=== PATIENT | female | born 1985 | race Caucasian/White ===

== ENCOUNTER → 2016-07-18 | Outpatient (REF) | payer OTHER ==
[~2016-07-18] MED LIST: ACET50TA PO; IBUP80TA PO; PRIL20CA PO; SYMB80AE IN
== END ==
LOC: M LAB REF 11:59
PROVIDERS: ATTEND Physician Assistant Medical
DX: J11.1 Influenza due to unidentified influenza virus with other respiratory manifestations (principal)

== ENCOUNTER → 2016-09-01 | Outpatient (REF) | payer OTHER | LOC: M SFHCCLAY 16:18 | PROVIDERS: ATTEND Nurse Practitioner | DX: A09 Infectious gastroenteritis and colitis, unspecified (principal) ==

== ENCOUNTER → 2017-05-23 | Outpatient (CLI) | payer OTHER ==
[2017-05-23 23:22] LABS: INFLUENZA A AMPLIFICATION NEGATIVE (NEGATIVE); INFLUENZA B AMPLIFICATION NEGATIVE (NEGATIVE); RSV AMPLIFICATION NEGATIVE (NEGATIVE)
== END ==
LOC: M RAD 19:12
DX: J45.909 Unspecified asthma, uncomplicated (principal)
CPT/HCPCS: 71046

== ENCOUNTER → 2017-08-04 | Outpatient (CLI) | payer OTHER | LOC: M CLY 10:20 | DX: M25.521 Pain in right elbow (principal); M25.531 Pain in right wrist | CPT/HCPCS: 73080 ==

== ENCOUNTER → 2017-10-25 | Outpatient (REF) | payer OTHER ==
[2017-10-26 11:25] LABS: BASO % 0.3 % (0.0-1.0); EOS # 0.4 10^3/uL (0.0-0.50); EOS % 6.3 % (0.0-3.0); HEMATOCRIT 39.8 % (36.0-47.0); HEMOGLOBIN 13.2 g/dl (12.0-15.5); IMMATURE GRANULOCYTE % 0.2 % (0-3.0); LYMPH # 1.9 10^3/uL (1.5-4.5); LYMPH % 29.8 % (24.0-44.0); MEAN CORPUSCULAR HEMOGLOBIN 29.6 pg (27.0-33.0); MEAN CORPUSCULAR HGB CONC 33.2 g/dl (32.0-36.5); MEAN CORPUSCULAR VOLUME 89.2 fl (80.0-96.0); MONO # 0.4 10^3/uL (0.0-0.8); MONO % 6.6 % (0.0-5.0); NEUTROPHILS # 3.7 10^3/uL (1.8-7.7); NEUTROPHILS % 56.8 % (36.0-66.0); PLATELET COUNT, AUTOMATED 294 10^3/uL (150-450); RED BLOOD COUNT 4.46 10^6/uL (4.00-5.40); RED CELL DISTRIBUTION WIDTH 11.9 % (11.5-14.5); WHITE BLOOD COUNT 6.5 10^3/uL (4.0-10.0)
[2017-10-26 11:56] LABS: IRON (FE) 45 UG/DL (50-170)
[2017-10-26 11:56] LABS: FREE T4 1.07 NG/DL (0.76-1.46)
== END ==
LOC: M SFHCCLAY 15:35
DX: R53.83 Other fatigue (principal); M25.521 Pain in right elbow; M25.561 Pain in right knee
CPT/HCPCS: 83540

== ENCOUNTER → 2017-11-18 | Outpatient (REF) | payer OTHER ==
[2017-11-18 13:45] LABS: C REACTIVE PROTEIN QUANTITATIV 1.64 MG/DL (0.00-0.30)
[2017-11-19 15:15] LABS: PROCALCITONIN <0.05 NG/ML (<0.10)
[2017-11-20 00:06] LABS: ANA (HEP2) Positive (.); Lyme Disease IgG/IgM Antibodie <0.91 ISR (0.00-0.90); Lyme Disease IgM Ab Quantitati <0.80 index (0.00-0.79); RNP ANTIBODY < 0.2 AI (0.0-0.9); SMITHS ANTIBODY 0.2 AI (0.0-0.9); SSA SJOGRENS A <0.2 AI (0.0-0.9); SSB SJOGRENS B <0.2 AI (0.0-0.9)
[2017-11-27 00:07] LABS: CYCLIC CITRULLINATED PEPTIDE 8 units (0-19)
== END ==
LOC: M SFHCLERA 09:23
DX: M17.11 Unilateral primary osteoarthritis, right knee (principal)

== ENCOUNTER → 2017-11-22 | Outpatient (CLI) | payer OTHER | LOC: M RAD 09:52 | DX: M17.11 Unilateral primary osteoarthritis, right knee (principal); M25.461 Effusion, right knee; M71.21 Synovial cyst of popliteal space [Baker], right knee | CPT/HCPCS: 73721 ==

== ENCOUNTER → 2017-11-23 | Outpatient (CLI) | payer OTHER ==
[2017-11-23 14:12] LABS: CPK CREATINE PHOSPHOKINASE 149 U/L (26-192); TOTAL PROTEIN 7.3 GM/DL (6.4-8.2)
[2017-11-23 14:12] LABS: LDH LACTATE DEHYDROGENASE 161 U/L (84-246)
[2017-11-23 14:28] LABS: ERYTHROCYTE SEDIMENTATION RATE 8 mm/hr (0-20)
[2017-11-23 16:18] LABS: CHLAMYDIA DNA AMPLIFICATION NEGATIVE (NEGATIVE); GC DNA AMPLIFICATION NEGATIVE (NEGATIVE)
[2017-11-25 11:47] LABS: ALBUMIN 3.97 GM/DL (3.29-5.55); ALBUMIN % 54.4 % (55.8-66.1); ALPHA-1-GLOBULIN % 5.3 % (2.9-4.9); ALPHA-1-GLOBULINS 0.39 GM/DL (0.17-0.41); ALPHA-2-GLOBULINS 0.85 GM/DL (0.42-0.99); ALPHA-2-GLOBULINS % 11.7 % (7.1-11.8); BETA-2-GLOBULINS % 4.9 % (3.2-6.5); GAMMA GLOBULIN % 17.7 % (11.1-18.8)
[2017-11-25 11:48] LABS: BETA-1-GLOBULINS 0.44 GM/DL (0.28-0.60); BETA-2-GLOBULINS 0.36 GM/DL (0.19-0.55); GAMMA GLOBULINS 1.29 GM/DL (0.65-1.58)
[2017-12-01 14:26] LABS: ALDOLASE 5.2 U/L (3.3-10.3); ANTI JO-1 ANTIBODIES <0.2 AI (0.0-0.9); HLA-B27 Negative (.)
== END ==
LOC: M LAB 13:02
DX: M17.11 Unilateral primary osteoarthritis, right knee (principal)
CPT/HCPCS: 72114

== ENCOUNTER → 2017-11-25 | Outpatient (CLI) | payer OTHER ==
[~2017-11-25] MED LIST changes: -ACET50TA PO; -IBUP80TA PO; +LIDOCAINE 1% MDV 20ML VIAL As Ordered; -PRIL20CA PO; -SYMB80AE IN
== END ==
LOC: M RADPRO 10:43
DX: R60.0 Localized edema (principal)
CPT/HCPCS: 10022

== ENCOUNTER → 2017-12-20 | Outpatient (REF) | payer OTHER ==
[2017-12-20 16:39] LABS: BASO % 0.4 % (0.0-1.0); EOS # 0.6 10^3/uL (0.0-0.50); EOS % 6.6 % (0.0-3.0); HEMATOCRIT 45.2 % (36.0-47.0); HEMOGLOBIN 14.7 g/dl (12.0-15.5); IMMATURE GRANULOCYTE % 0.4 % (0-3.0); LYMPH # 2.2 10^3/uL (1.5-4.5); LYMPH % 25.7 % (24.0-44.0); MEAN CORPUSCULAR HEMOGLOBIN 29.6 pg (27.0-33.0); MEAN CORPUSCULAR HGB CONC 32.5 g/dl (32.0-36.5); MEAN CORPUSCULAR VOLUME 90.9 fl (80.0-96.0); MONO # 0.3 10^3/uL (0.0-0.8); MONO % 3.8 % (0.0-5.0); NEUTROPHILS # 5.3 10^3/uL (1.8-7.7); NEUTROPHILS % 63.1 % (36.0-66.0); PLATELET COUNT, AUTOMATED 330 10^3/uL (150-450); RED BLOOD COUNT 4.97 10^6/uL (4.00-5.40); RED CELL DISTRIBUTION WIDTH 11.8 % (11.5-14.5); WHITE BLOOD COUNT 8.4 10^3/uL (4.0-10.0)
[2017-12-20 17:32] LABS: ERYTHROCYTE SEDIMENTATION RATE 6 mm/hr (0-20)
[2017-12-20 22:13] LABS: ALBUMIN 3.5 GM/DL (3.2-5.2); ALKALINE PHOSPHATASE 81 U/L (45-117); ALT/SGPT 14 U/L (12-78); ANION GAP 7 MEQ/L (8-16); AST/SGOT 13 U/L (7-37); BILIRUBIN,TOTAL 0.9 MG/DL (0.2-1.0); BLOOD UREA NITROGEN 10 MG/DL (7-18); CALCIUM LEVEL 9.4 MG/DL (8.5-10.1); CARBON DIOXIDE LEVEL 28 MEQ/L (21-32); CHLORIDE LEVEL 104 MEQ/L (98-107); CREATININE FOR GFR 0.77 MG/DL (0.55-1.30); GLOMERULAR FILTRATION RATE > 60.0 (>60); GLUCOSE, FASTING 90 MG/DL (70-100); POTASSIUM SERUM 4.2 MEQ/L (3.5-5.1); SODIUM LEVEL 139 MEQ/L (136-145); TOTAL PROTEIN 7.4 GM/DL (6.4-8.2)
== END ==
LOC: M SFHCCLAY 11:37
DX: M35.9 Systemic involvement of connective tissue, unspecified (principal)

== ENCOUNTER → 2018-02-11 | Outpatient (REF) | payer OTHER ==
[2018-02-11 16:38] LABS: HCG, SERUM QUANTITATIVE < 1.0 MIU/ML
== END ==
LOC: M LABDRAWC 16:09
DX: O20.0 Threatened abortion (principal)
CPT/HCPCS: 84702

== ENCOUNTER → 2018-02-17 | Outpatient (REF) | payer OTHER ==
[2018-02-19 15:23] LABS: HPV HYBRID CAPTURE II Negative (Negative)
== END ==
LOC: M LAB REF 17:56
DX: Z12.4 Encounter for screening for malignant neoplasm of cervix (principal)

== ENCOUNTER → 2018-05-23 | Outpatient (REF) | payer OTHER ==
[~2018-05-23] MED LIST changes: +ACET50TA PO; +IBUP80TA PO; -LIDOCAINE 1% MDV 20ML VIAL As Ordered; +PRIL20CA PO; +SYMB80AE IN
[2018-05-23 12:24] LABS: BASO % 0.4 % (0.0-1.0); EOS # 0.6 10^3/uL (0.0-0.50); EOS % 7.8 % (0.0-3.0); HEMATOCRIT 46.6 % (36.0-47.0); HEMOGLOBIN 14.7 g/dl (12.0-15.5); LYMPH # 2.2 10^3/uL (1.5-4.5); LYMPH % 28.7 % (24.0-44.0); MEAN CORPUSCULAR HEMOGLOBIN 29.7 pg (27.0-33.0); MEAN CORPUSCULAR HGB CONC 31.5 g/dl (32.0-36.5); MEAN CORPUSCULAR VOLUME 94.1 fl (80.0-96.0); MONO # 0.6 10^3/uL (0.0-0.8); MONO % 7.2 % (0.0-5.0); NEUTROPHILS # 4.3 10^3/uL (1.8-7.7); NEUTROPHILS % 55.8 % (36.0-66.0); PLATELET COUNT, AUTOMATED 304 10^3/uL (150-450); RED BLOOD COUNT 4.95 10^6/uL (4.00-5.40); WHITE BLOOD COUNT 7.7 10^3/uL (4.0-10.0)
== END ==
LOC: M SFHCPLAZ 09:11
PROVIDERS: ATTEND Internal Medicine Rheumatology
DX: M35.9 Systemic involvement of connective tissue, unspecified (principal)

== ENCOUNTER → 2018-05-26 | Outpatient (REF) | payer OTHER ==
[2018-05-26 13:00] LABS: FREE T4 0.94 NG/DL (0.76-1.46); THYROID STIMULATING HORMONE 1.36 uIU/ML (0.358-3.740)
== END ==
LOC: M SFHCCLAY 09:29
PROVIDERS: ATTEND Nurse Practitioner Family
DX: R63.5 Abnormal weight gain (principal)

== ENCOUNTER → 2018-08-18 | Outpatient (REF) | payer OTHER ==
[~2018-08-18] MED LIST changes: -ACET50TA PO; +MAPA500T17 PO
== END ==
LOC: M SFHCPLAZ 09:17
PROVIDERS: ATTEND Internal Medicine Rheumatology
DX: M35.9 Systemic involvement of connective tissue, unspecified (principal)

== ENCOUNTER → 2018-11-30 | Outpatient (REF) | payer OTHER ==
[2018-11-30 12:12] LABS: BASO % 0.3 % (0.0-1.0); EOS # 0.6 10^3/uL (0.0-0.50); HEMATOCRIT 44.3 % (36.0-47.0); HEMOGLOBIN 14.4 g/dl (12.0-15.5); LYMPH # 2.1 10^3/uL (1.5-4.5); LYMPH % 31.6 % (24.0-44.0); MEAN CORPUSCULAR HEMOGLOBIN 30.8 pg (27.0-33.0); MEAN CORPUSCULAR HGB CONC 32.5 g/dl (32.0-36.5); MEAN CORPUSCULAR VOLUME 94.7 fl (80.0-96.0); MONO # 0.4 10^3/uL (0.0-0.8); MONO % 6.4 % (0.0-5.0); NEUTROPHILS # 3.5 10^3/uL (1.8-7.7); NEUTROPHILS % 52.4 % (36.0-66.0); PLATELET COUNT, AUTOMATED 273 10^3/uL (150-450); RED BLOOD COUNT 4.68 10^6/uL (4.00-5.40); WHITE BLOOD COUNT 6.8 10^3/uL (4.0-10.0)
[2018-11-30 12:29] LABS: ALBUMIN 3.7 GM/DL (3.2-5.2); ALT/SGPT 16 U/L (12-78); BILIRUBIN,TOTAL 0.8 MG/DL (0.2-1.0); BLOOD UREA NITROGEN 9 MG/DL (7-18); CALCIUM LEVEL 8.9 MG/DL (8.5-10.1); CARBON DIOXIDE LEVEL 30 MEQ/L (21-32); CHLORIDE LEVEL 104 MEQ/L (98-107); CREATININE FOR GFR 0.66 MG/DL (0.55-1.30); FREE T4 0.92 NG/DL (0.76-1.46); GLOMERULAR FILTRATION RATE > 60.0 (>60); GLUCOSE, FASTING 81 MG/DL (70-100); IRON (FE) 110 UG/DL (50-170); SODIUM LEVEL 139 MEQ/L (136-145); TOTAL PROTEIN 6.7 GM/DL (6.4-8.2)
== END ==
LOC: M SFHCCLAY 08:42
PROVIDERS: ATTEND Nurse Practitioner Family
DX: F34.1 Dysthymic disorder (principal); M35.9 Systemic involvement of connective tissue, unspecified; R63.5 Abnormal weight gain; M79.7 Fibromyalgia

== ENCOUNTER 2019-01-31 14:56 | Emergency (ER) | payer OTHER, SELFPAY ==
[~2019-01-31] VITALS: Ht 154.9 cm; Wt 85.0 kg
[2019-01-31] MEDS ORDERED: BREO1INH (15:05)
[2019-01-31] MEDS ORDERED: VENTAER (15:05)
[2019-01-31 16:20] LABS: BASO % 0.3 % (0.0-1.0); EOS # 0.7 10^3/uL (0.0-0.5); EOS % 7.1 % (0.0-3.0); HEMATOCRIT 43.3 % (36.0-47.0); HEMOGLOBIN 14.5 g/dl (12.0-15.5); LYMPH # 2.7 10^3/uL (1.5-5.0); LYMPH % 27.5 % (24.0-44.0); MEAN CORPUSCULAR HEMOGLOBIN 30.6 pg (27.0-33.0); MEAN CORPUSCULAR HGB CONC 33.5 g/dl (32.0-36.5); MEAN CORPUSCULAR VOLUME 91.4 fl (80.0-96.0); MONO # 0.5 10^3/uL (0.0-0.8); MONO % 5.2 % (0.0-5.0); NEUTROPHILS # 5.9 10^3/uL (1.5-8.5); NEUTROPHILS % 59.7 % (36.0-66.0); PLATELET COUNT, AUTOMATED 292 10^3/uL (150-450); RED BLOOD COUNT 4.74 10^6/uL (4.00-5.40); WHITE BLOOD COUNT 9.8 10^3/uL (4.0-10.0)
[2019-01-31] MEDS ORDERED: ISOVUE-370 76% 100ML VIAL (Q9967) As Ordered ONE (17:51)
--- NOTE | 2019-01-31 20:11 | REPVR ---
PROCEDURE INFORMATION: Exam: CT Abdomen And Pelvis With Contrast Exam date and time: 01/31/2019 6:33 PM Clinical history: 33 years old, female; Abdominal pain; Localized; Left lower quadrant (llq); Additional info: Llq pain x2 months TECHNIQUE: Imaging protocol: Computed tomography of the abdomen and pelvis with intravenous contrast. Radiation optimization: All CT scans at this facility use at least one of these dose optimization techniques: automated exposure control; mA and/or kV adjustment per patient size (includes targeted exams where dose is matched to clinical indication); or iterative reconstruction. Contrast material: ISOVUE 37; Contrast volume: 100 ml; Contrast route: IV; COMPARISON: US PELVIC NON-OB COMPLETE 01/31/2019 4:47 PM FINDINGS: Liver: There is mild fatty infiltration of the liver. No focal hepatic lesion. Gallbladder and bile ducts: The gallbladder is normal. Pancreas: The pancreas is normal. Spleen: The spleen is normal. Adrenals: The adrenal glands are normal. Kidneys and ureters: The kidneys are normal. No hydronephrosis. Stomach and bowel: No colonic diverticula are seen. There is no bowel wall thickening or distention. Appendix: The appendix is normal. Intraperitoneal space: Unremarkable. No free air. No significant fluid collection. Vasculature: Unremarkable. No abdominal aortic aneurysm. Lymph nodes: Unremarkable. No enlarged lymph nodes. Bladder: The bladder is normal with no evidence of calculi. Reproductive: Within there is an 18 mm right ovarian hypodensity with an enhancing rim probably an involuting cyst. The uterus and left ovary are normal. Bones/joints: Unremarkable. No acute fracture. Soft tissues: Unremarkable. IMPRESSION: 1. 18 mm right ovarian involuting cyst. 2. No acute inflammatory findings. Electronically signed by: Gomez Conn On 01/31/2019 20:11:08 PM
[2019-01-31] MEDS ORDERED: ZOFR8TAB24 PO (20:42)
[2019-01-31 20:47] VITALS: BP 136/87
--- NOTE | 2019-01-31 20:53 | REP ---
PELVIC ULTRASOUND: Real-time sonographic evaluation of the pelvis performed utilizing transabdominal and endovaginal technique. The bladder measures 6.8 x 4.8 x 6.8 cm. Uterus measures 7.0 x 3.7 x 4.3 cm. Endometrial thickness is approximately 3 mm. There is no endometrial fluid collection. The ovaries are normal in size and echotexture, right ovary measuring 3.1 x 2.5 x 3.3 cm and left ovary 3.7 x 1.7 x 1.8 cm. There is no adnexal mass or free fluid. There is no torsion of either ovary with duplex Doppler evaluation. IMPRESSION: Negative pelvic ultrasound. Electronically Signed by Bright Pritchett MD 02/01/2019 02:17 P
== END 2019-01-31 20:49 | disposition home or self-care (01) ==
LOC: M ED 14:56
DX: N83.201 Unspecified ovarian cyst, right side (principal); M79.7 Fibromyalgia; Z87.891 Personal history of nicotine dependence
CPT/HCPCS: 36415; 74177; 76830; 76856; 80047; 81001; 84443; 84702; 85025; 87086; 93976; 99284; Q9967

== ENCOUNTER → 2019-02-14 | Outpatient (REF) | payer OTHER ==
[~2019-02-14] MED LIST changes: +BREO1INH; +VENTAER; +ZOFR8TAB24 PO
[2019-02-14 19:43] LABS: CHLAMYDIA DNA AMPLIFICATION NEGATIVE (NEGATIVE); GC DNA AMPLIFICATION NEGATIVE (NEGATIVE)
== END ==
LOC: M LAB REF 17:19
PROVIDERS: ATTEND Advanced Practice Midwife
DX: R10.2 Pelvic and perineal pain (principal)

== ENCOUNTER → 2019-12-11 | Outpatient (CLI) | payer OTHER ==
[~2019-12-11] MED LIST changes: +PRENTAB29
[2019-12-11 19:05] LABS: BASO % 0.2 % (0.0-1.0); EOS % 3.2 % (0.0-3.0); HEMATOCRIT 42.6 % (36.0-47.0); HEMOGLOBIN 14.2 g/dl (12.0-15.5); LYMPH # 2.3 10^3/uL (1.5-5.0); LYMPH % 21.1 % (24.0-44.0); MEAN CORPUSCULAR HEMOGLOBIN 30.4 pg (27.0-33.0); MEAN CORPUSCULAR HGB CONC 33.3 g/dl (32.0-36.5); MEAN CORPUSCULAR VOLUME 91.2 fl (80.0-96.0); MONO % 5.7 % (0.0-5.0); NEUTROPHILS # 7.6 10^3/uL (1.5-8.5); NEUTROPHILS % 69.4 % (36.0-66.0); PLATELET COUNT, AUTOMATED 308 10^3/uL (150-450); RED BLOOD COUNT 4.67 10^6/uL (4.00-5.40)
[2019-12-11 19:06] LABS: EOS # 0.4 10^3/uL (0.0-0.5); MONO # 0.6 10^3/uL (0.0-0.8)
[2019-12-11 20:23] LABS: HEPATITIS C VIRUS ABY INDEX 0.3 INDEX (<0.8); HIV 1&2 SCREEN CENTAUR NEGATIVE (NEGATIVE)
[2019-12-11 21:15] LABS: CHLAMYDIA DNA AMPLIFICATION NEGATIVE (NEGATIVE); GC DNA AMPLIFICATION NEGATIVE (NEGATIVE)
== END ==
LOC: M PLALAB 14:15
PROVIDERS: ATTEND Advanced Practice Midwife
DX: Z34.81 Encounter for supervision of other normal pregnancy, first trimester (principal); Z3A.00 Weeks of gestation of pregnancy not specified

== ENCOUNTER 2019-12-28 09:32 | Emergency (ER) | payer OTHER ==
[~2019-12-28] VITALS: Ht 154.9 cm; Wt 83.2 kg
[~2019-12-28 09:32] MED LIST changes: -PRENTAB29
[2019-12-28] MEDS ORDERED: PRENTAB29 (09:39)
[2019-12-28 10:25] LABS: APPEARANCE, URINE CLEAR (CLEAR); BACTERIA, URINE AUTO NEGATIVE (NEGATIVE); BILIRUBIN, URINE AUTO NEGATIVE (NEGATIVE); BLOOD, URINE BLOOD NEGATIVE (NEGATIVE); COLOR, URINE YELLOW (YELLOW); GLUCOSE, URINE (UA) AUTO NEGATIVE (NEGATIVE); KETONE, URINE AUTO NEGATIVE (NEGATIVE); LEUKOCYTE ESTERASE, URINE AUTO NEGATIVE (NEGATIVE); MUCUS, URINE SMALL (NEGATIVE); NITRITE, URINE AUTO NEGATIVE (NEGATIVE); PROTEIN, URINE AUTO NEGATIVE (NEGATIVE); RBC, URINE AUTO 1 /HPF (0-3); SPECIFIC GRAVITY URINE AUTO 1.023 (1.002-1.035); SQUAMOUS EPITHELIAL CELL UR AU 2 /HPF (0-6); UROBILINOGEN, URINE AUTO 0.2 mg/dL (0.0-2.0); WBC, URINE AUTO 1 /HPF (0-3)
[2019-12-28 10:27] LABS: BASO % 0.2 % (0.0-1.0); EOS # 0.5 10^3/uL (0.0-0.5); EOS % 5.6 % (0.0-3.0); HEMATOCRIT 42.5 % (36.0-47.0); LYMPH # 1.7 10^3/uL (1.5-5.0); MEAN CORPUSCULAR HEMOGLOBIN 30.2 pg (27.0-33.0); MEAN CORPUSCULAR HGB CONC 32.9 g/dl (32.0-36.5); MEAN CORPUSCULAR VOLUME 91.6 fl (80.0-96.0); MONO # 0.4 10^3/uL (0.0-0.8); MONO % 4.9 % (0.0-5.0); NEUTROPHILS # 6.3 10^3/uL (1.5-8.5); PLATELET COUNT, AUTOMATED 264 10^3/uL (150-450); RED BLOOD COUNT 4.64 10^6/uL (4.00-5.40)
[2019-12-28 11:08] VITALS: BP 105/74
--- NOTE | 2019-12-28 11:21 | REPVR ---
PROCEDURE INFORMATION: Exam: US First Trimester, Transabdominal Exam date and time: 12/28/2019 11:00 AM Age: 34 years old Clinical indication: Lmp or gestational age (in weeks): 11; Antepartum complications; Bleeding; ; Additional info: Vaginal bleeding TECHNIQUE: Imaging protocol: Real-time transabdominal obstetrical ultrasound of the maternal pelvis and a first trimester , less than 14 weeks 0 days, with image documentation. COMPARISON: No relevant prior studies available. FINDINGS: Gestation: Single intrauterine gestation. A yolk sac is present. Embryonic/ heart rate: 156 bpm. Placenta: No demonstrated subchorionic hemorrhage. BIOMETRY: Gestational age (AUA): Mean crown-rump length 4.8 cm, corresponding to an estimated gestational age of 11 weeks 4 days. MATERNAL: Uterus: The uterus measures 10.6 x 7.5 cm. Cervix: The cervix was not completely visualized or measured, but appears closed. Adnexae: No demonstrated abnormality in the maternal adnexae. IMPRESSION: Single viable intrauterine gestation with estimated gestational age of 11 weeks 4 days based on measurements from today's ultrasound. Electronically signed by: Dex Rico On 12/28/2019 11:20:55 AM
== END 2019-12-28 11:36 | disposition home or self-care (01) ==
LOC: M ED 09:32
DX: O26.851 Spotting complicating pregnancy, first trimester (principal); Z3A.11 11 weeks gestation of pregnancy; O99.511 Diseases of the respiratory system complicating pregnancy, first trimester; Z79.51 Long term (current) use of inhaled steroids; Z88.6 Allergy status to analgesic agent

== ENCOUNTER → 2020-01-10 | Outpatient (CLI) | payer OTHER ==
[~2020-01-10] MED LIST changes: +PRENTAB29
== END ==
LOC: M PLALAB 09:14
PROVIDERS: ATTEND Advanced Practice Midwife
DX: Z12.4 Encounter for screening for malignant neoplasm of cervix (principal); Z84.81 Family history of carrier of genetic disease; Z84.89 Family history of other specified conditions

== ENCOUNTER → 2020-02-05 | Outpatient (REF) | payer OTHER | LOC: M SFHCWAGY 13:23 | PROVIDERS: ATTEND Advanced Practice Midwife | DX: Z34.92 Encounter for supervision of normal pregnancy, unspecified, second trimester (principal) ==

== ENCOUNTER → 2020-03-22 | Outpatient (REF) | payer OTHER ==
[2020-03-22 13:25] LABS: BASO % 0.2 % (0.0-1.0); EOS # 0.3 10^3/uL (0.0-0.5); EOS % 2.6 % (0.0-3.0); HEMATOCRIT 41.8 % (36.0-47.0); HEMOGLOBIN 13.5 g/dl (12.0-15.5); LYMPH # 1.8 10^3/uL (1.5-5.0); LYMPH % 13.7 % (24.0-44.0); MEAN CORPUSCULAR HGB CONC 32.3 g/dl (32.0-36.5); MEAN CORPUSCULAR VOLUME 92.9 fl (80.0-96.0); MONO # 0.6 10^3/uL (0.0-0.8); MONO % 4.7 % (0.0-5.0); NEUTROPHILS # 10.1 10^3/uL (1.5-8.5); NEUTROPHILS % 78.2 % (36.0-66.0); PLATELET COUNT, AUTOMATED 302 10^3/uL (150-450); WHITE BLOOD COUNT 12.9 10^3/uL (4.0-10.0)
[2020-03-22 14:02] LABS: ALBUMIN 2.7 GM/DL (3.2-5.2); ALT/SGPT 19 U/L (12-78); BILIRUBIN,TOTAL 0.5 MG/DL (0.2-1.0); BLOOD UREA NITROGEN 7 MG/DL (7-18); CARBON DIOXIDE LEVEL 27 MEQ/L (21-32); CHLORIDE LEVEL 105 MEQ/L (98-107); CREATININE FOR GFR 0.55 MG/DL (0.55-1.30); GLOMERULAR FILTRATION RATE > 60.0 (>60); GLUCOSE, FASTING 74 MG/DL (70-100); POTASSIUM SERUM 4.1 MEQ/L (3.5-5.1); SODIUM LEVEL 138 MEQ/L (136-145); TOTAL PROTEIN 6.1 GM/DL (6.4-8.2)
== END ==
LOC: M PLALAB 10:54
PROVIDERS: ATTEND Advanced Practice Midwife
DX: R53.81 Other malaise (principal)

== ENCOUNTER → 2020-04-15 | Outpatient (CLI) | payer OTHER ==
--- NOTE | 2020-04-17 08:15 | REP ---
INDICATION: EVALUATE PLACENTA AND CORD INSERTION COMPARISON: None. TECHNIQUE: Transabdominal obstetrical ultrasound with color Doppler evaluation. FINDINGS: Examination demonstrates a single live intrauterine in cephalic presentation. motion is identified by technologist. Amniotic fluid volume is normal. Cervix measures 4.4 cm in length and appears closed. Placental tissue is identified both anteriorly and posteriorly suggesting bilobed placenta with eccentric cord insertion in the posterolateral portion of placenta. There is no evidence for previa. Gestational age by LMP 26 weeks 6 days with WOLFGANG 07/16/2020. Gestational age by current measurements 27 weeks 1 day with WOLFGANG 07/14/2020. FHR equals 146 beats per minute. NAIMA: 21.3 cm (9.5-22.6) Estimated weight by current measurements 993 grams (36thpercentile). Limited anatomical assessment demonstrates no obvious abnormality. IMPRESSION: 1. Single live gestation in cephalic presentation demonstrating appropriate estimated weight and growth. 2. Bilobed placenta with eccentric cord insertion. No evidence for previa. <Electronically signed by Roosevelt Armijo > 04/17/20 [id number]
== END ==
LOC: M WHC 06:49
PROVIDERS: ATTEND Obstetrics & Gynecology
DX: O43.122 Velamentous insertion of umbilical cord, second trimester (principal); Z3A.27 27 weeks gestation of pregnancy

== ENCOUNTER → 2020-04-15 | Outpatient (REF) | payer OTHER ==
[2020-04-15 10:24] LABS: HEMATOCRIT 37.7 % (36.0-47.0); HEMOGLOBIN 12.5 g/dl (12.0-15.5); MEAN CORPUSCULAR HEMOGLOBIN 30.4 pg (27.0-33.0); MEAN CORPUSCULAR HGB CONC 33.2 g/dl (32.0-36.5); MEAN CORPUSCULAR VOLUME 91.7 fl (80.0-96.0); PLATELET COUNT, AUTOMATED 242 10^3/uL (150-450); RED BLOOD COUNT 4.11 10^6/uL (4.00-5.40); WHITE BLOOD COUNT 9.4 10^3/uL (4.0-10.0)
== END ==
LOC: M PLALAB 08:05
PROVIDERS: ATTEND Obstetrics & Gynecology
DX: O43.122 Velamentous insertion of umbilical cord, second trimester (principal)

== ENCOUNTER → 2020-04-25 | Outpatient (CLI) | payer OTHER | LOC: M LAB 07:51 | PROVIDERS: ATTEND Obstetrics & Gynecology | DX: Z34.80 Encounter for supervision of other normal pregnancy, unspecified trimester (principal); Z3A.00 Weeks of gestation of pregnancy not specified ==

== ENCOUNTER → 2020-05-13 | Outpatient (CLI) | payer OTHER ==
--- NOTE | 2020-05-14 08:17 | REP ---
INDICATION: GROWTH/NAIMA/PLACENTAL ABN COMPARISON: 04/15/2020 TECHNIQUE: Transabdominal obstetrical ultrasound with color Doppler evaluation. FINDINGS: Examination demonstrates a single live intrauterine in breech presentation. motion is identified by technologist. Placenta is noted anterior/posterior and grade 2 without evidence for placenta previa or abruption. Amniotic fluid volume is normal. Cervix measures 3.1 cm in length and appears closed. Bilobed versus succenturiate placenta again suggested with the cord insertion along the lateral aspect of the posterior placental component. Gestational age by LMP 30 weeks 6 days with WOLFGANG 07/16/2020. Gestational age by current measurements 31 weeks 1 day with WOLFGANG 07/14/2020. FHR equals 150 beats per minute. NAIMA: 15.6 cm estimated weight 1545 grams (20thpercentile). IMPRESSION: Single live advanced gestation in breech presentation demonstrating appropriate interval growth. Amniotic fluid volume is normal. Bilobed/succenturiate placenta with lateral/velamentous cord insertion. <Electronically signed by Roosevelt Armijo > 05/14/20 [id number]
== END ==
LOC: M WHC 10:38
PROVIDERS: ATTEND Advanced Practice Midwife
DX: Z34.83 Encounter for supervision of other normal pregnancy, third trimester (principal)

== ENCOUNTER 2020-06-11 18:00 | Outpatient (CLI) | payer OTHER ==
[~2020-06-11] VITALS: Ht 154.9 cm; Wt 96.3 kg
[2020-06-11 18:17] VITALS: BP 131/82
[2020-06-11] MEDS ORDERED: OMEP-218 (18:21)
[2020-06-11] MEDS ORDERED: LACTATED RINGER'S 1000 ML IV STA (18:42)
[2020-06-11] MEDS ORDERED: LR 1,000 ML IV SCH (18:42)
[2020-06-11] MEDS ORDERED: ONDANSETRON 4MG/2ML VIAL IV ONE (18:45)
[2020-06-11 20:16] LABS: APPEARANCE, URINE HAZY (CLEAR); BACTERIA, URINE AUTO 1+ (NEGATIVE); BILIRUBIN, URINE AUTO NEGATIVE (NEGATIVE); BLOOD, URINE BLOOD NEGATIVE (NEGATIVE); COLOR, URINE YELLOW (YELLOW); GLUCOSE, URINE (UA) AUTO NEGATIVE (NEGATIVE); KETONE, URINE AUTO TRACE mg/dL (NEGATIVE); LEUKOCYTE ESTERASE, URINE AUTO TRACE (NEGATIVE); NITRITE, URINE AUTO NEGATIVE (NEGATIVE); PROTEIN, URINE AUTO NEGATIVE (NEGATIVE); RBC, URINE AUTO 1 /HPF (0-3); SQUAMOUS EPITHELIAL CELL UR AU 5 /HPF (0-6); UROBILINOGEN, URINE AUTO 0.2 mg/dL (0.0-2.0); WBC, URINE AUTO 6 /HPF (0-3)
[2020-06-11] MEDS ORDERED: CEPHALEXIN 500 MG CAP PO ONE (21:15)
[2020-06-11] MEDS ORDERED: CEPH500T PO (22:02)
--- NOTE | 2020-06-11 22:13 | IPNPDOC ---
Text Note Date of Service The patient was seen on 06/11/20. NOTE L&D triage visit Nathalie is a 35yo with SIUP at 35wk who presented for nausea, vomiting, tingling in fingers, cramping in belly started suddenly this afternoon. Reports she was eating and drinking all day normally prior. Does not believe she ate anything unusual and no one else at home is ill. Good movement, no vaginal bleeding, no loss of fluid. Feels cramping but no overt ctx. Had one episode of emesis in triage just after arrival with no further vomiting. Vitals wnl, afebrile Gen: WDWN, A&Ox3, NAD Abd: soft, gravid, NTTP Back: no CVAT SCE: closed/thick/high Cat I FHRT with bl 115, +accels, -decels, mod suzi [place]: no regular ctx pattern Labs: Urinalysis: trace LE, negative nitrite, negative blood, 6 WBC, 1+ bacteria, 5 squam Assessment: Nathalie is a 35yo with SIUP at 35wk with n/v of sudden onset, possible viral gastritis with possible UTI. NO e/o pyelo. NO e/o labor. Reassuring status. No further emesis after receiving 1L LR IVF and 8mg IV zofran. Plan: -Safe for discharge home -Rx given for keflex 500mg qid x7d. First dose given in triage with small snack which patient tolerated without emesis -Keep next routine OB appt 06/14 -Continue good hydration -Return precautions discussed MD SILVERIO Blackman Fishbone I+O VSSravani I+O Vital Signs Date Time Temp Pulse Resp B/P (MAP) Pulse Ox O2 Delivery O2 Flow Rate FiO2 06/11/20 18:17 97.4 100 18 131/82 (98) Shanon Carlson MD Jun 11, 2020 22:13
== END 2020-06-11 22:15 | disposition home or self-care (01) ==
LOC: M LDO 18:00
PROVIDERS: ATTEND Obstetrics & Gynecology
DX: O21.9 Vomiting of pregnancy, unspecified (principal); Z3A.35 35 weeks gestation of pregnancy
CPT/HCPCS: 59025; 81001; 87086; 96374; J2405

== ENCOUNTER → 2020-06-14 | Outpatient (CLI) | payer OTHER ==
[~2020-06-14] MED LIST changes: +CEPH500T PO; +OMEP-218
--- NOTE | 2020-06-14 14:25 | REP ---
INDICATION: GROWTH/PLACENTA ABNORMALITY. COMPARISON: 05/13/2020. TECHNIQUE: Real-time sonographic evaluation of the gravid uterus performed. FINDINGS: Estimated gestational age is35 weeks 3 days, EDC 07/16/2020. Today's measurements indicate appropriate growth. Presentation: Breech Placenta the placenta is bilobed with anterior and posterior lobes noted. There is an intervening velamentous cord insertion., Grade 2, without evidence of placenta previa. heart rate is recorded at 152 beats per minute. Amniotic fluid is subjectively normal. NAIMA 17.7, normal 7.8-24.9. Closed cervical length is measured at 3.7 cm. Biometry chart: BPD: 97 mm, 39 weeks 5 days, greater than 95th percentile. HC: 338 mm, 38 weeks 6 days, greater than 95th percentile AC: 317 mm, 35 weeks 5 days, 54th percentile Femur length: 65 mm, 33 weeks 3 days, 20th percentile HC to AC ratio: 1.07, normal range 0.93-1.12. Estimated weight: 2769g, 60th percentile. IMPRESSION: Viable single intrauterine gestation as above. <Electronically signed by Bright Pritchett > 06/14/20 [id number]
== END ==
LOC: M WHC 11:28
PROVIDERS: ATTEND Obstetrics & Gynecology
DX: O43.103 Malformation of placenta, unspecified, third trimester (principal); Z3A.33 33 weeks gestation of pregnancy

== ENCOUNTER → 2020-06-21 | Outpatient (REF) | payer OTHER | LOC: M SFHCWAGY 09:35 | PROVIDERS: ATTEND Obstetrics & Gynecology | DX: O43.103 Malformation of placenta, unspecified, third trimester (principal) ==

== ENCOUNTER → 2020-06-23 | Outpatient (CLI) | payer OTHER | LOC: M LABSMTC 09:39 | PROVIDERS: ATTEND Anesthesiology | DX: Z01.812 Encounter for preprocedural laboratory examination (principal); Z20.822 Contact with and (suspected) exposure to COVID-19 ==

== ENCOUNTER 2020-06-28 06:53 | Inpatient (IN) | payer OTHER ==
[~2020-06-28] VITALS: Ht 154.9 cm; Wt 98.5 kg
[~2020-06-28 06:53] MED LIST changes: +BIOT1CAP2 PO
[2020-06-28 07:14] VITALS: BP 118/87
[2020-06-28] MEDS ORDERED: LACTATED RINGER'S 1000 ML IV ONE (07:50)
[2020-06-28] MEDS ORDERED: BICITRA 30ML SOLN UDC PO ONE (07:50)
[2020-06-28] MEDS ORDERED: ceFAZolin SOD 2 GM in IV 1 EA IV ONE (07:50)
[2020-06-28] MEDS ORDERED: PREN1CHW PO (07:53)
[2020-06-28 08:15] LABS: HEMATOCRIT 39.6 % (36.0-47.0); MEAN CORPUSCULAR HEMOGLOBIN 29.3 pg (27.0-33.0); MEAN CORPUSCULAR HGB CONC 32.8 g/dl (32.0-36.5); MEAN CORPUSCULAR VOLUME 89.4 fl (80.0-96.0); PLATELET COUNT, AUTOMATED 275 10^3/uL (150-450); RED BLOOD COUNT 4.43 10^6/uL (4.00-5.40); WHITE BLOOD COUNT 11.2 10^3/uL (4.0-10.0)
[2020-06-28] MEDS ORDERED: ONDANSETRON 4MG/2ML VIAL As Ordered ONE (08:28)
[2020-06-28] MEDS ORDERED: OXYTOCIN INJ 10 UNITS/ML VIAL (J2590) As Ordered ONE (08:28)
[2020-06-28] MEDS ORDERED: dexameTHASONE 4 MG/ML 1ML VIAL (J1100 PER 1MG) As Ordered ONE (08:28)
[2020-06-28] MEDS ORDERED: KETOROLAC 60MG 2ML VIAL As Ordered ONE (08:28)
[2020-06-28] MEDS ORDERED: fentaNYL 100 MCG/2 ML INJECTION (J3010) As Ordered ONE (08:29)
[2020-06-28] MEDS ORDERED: MORPHINE PRES-FREE INJ 10 MG/10 ML VIAL (J2274) As Ordered ONE (08:29)
[2020-06-28] MEDS ORDERED: LR 1,000 ML IV SCH ×2 (09:00→12:24)
[2020-06-28] MEDS ORDERED: ONDANSETRON 4MG/2ML VIAL IV PRN ×3 (11:24→12:40)
[2020-06-28] MEDS ORDERED: METOCLOPRAMIDE INJ 10MG/2ML VIAL (J2765 PER 1) IV PRN (11:24)
[2020-06-28] MEDS ORDERED: NALBUPHINE HCL 10 MG/ML AMP (J2300) IV PRN ×2 (11:24→12:40)
[2020-06-28] MEDS ORDERED: diphenhydrAMINE 50MG/ML VIAL (J1200) IV PRN (11:24)
[2020-06-28] MEDS ORDERED: NALOXONE INJ 0.4MG/1ML VIAL (J2310 PER 1MG) IV PRN ×2 (11:24)
[2020-06-28] MEDS ORDERED: ePHEDrine SULFATE 25 MG/5 ML(5MG/ML) SYRINGE As Ordered ONE (11:57)
[2020-06-28] MEDS ORDERED: OXYTOCIN DRIP 30 UNITS in IV 1 EA IV SCH (12:24)
[2020-06-28] MEDS ORDERED: ACETAMINOPHEN 500 MG TAB PO PRN (12:25)
[2020-06-28] MEDS ORDERED: RHOGAM 300 MCG (1500 IU) INJ (J2790) IM SCH (12:25)
[2020-06-28] MEDS ORDERED: MEASLES,MUMPS,RUBELLA VACCINE INJ (MMR-II) (90707) SC SCH (12:25)
--- NOTE | 2020-06-28 12:31 | ROOPDOC ---
[facility] Report Of Operation Report of Operation DATE OF PROCEDURE: 06/28/2020 PREPROCEDURE DIAGNOSES: 37+ weeks, GHTN, breech, velamentous cord insertion, satisfied parity POSTPROCEDURE DIAGNOSES: same PROCEDURE: Primary low transverse section with [place] bilateral tubal ligation. SURGEON: Manjeet Hamilton DO FACOG SAFETY AIDE: Court Murray CNM (Essential role in retraction, extraction, and closure of all tissue layers) ANESTHESIA: Spinal ESTIMATED BLOOD LOSS: 500 mL. IV FLUIDS: 1500 mL LR URINE OUTPUT: 50 mL COMPLICATIONS: None. FINDINGS: Normal uterus and bilateral fallopian tubes/ovaries. PREOPERATIVE ANTIBIOTICS: Ancef 2g IV x 1. DATA: Apgars 8 and 9. Birthweight 2990, 6lbs 9oz . SPECIMENS: 1. Placenta w/ umbilical cord. 2. right and left fallopian tubal segments. PRIMARY INDICATION FOR : Breech presentation, GHTN, velamentous cord insertion. DESCRIPTION OF PROCEDURE: The patient was counseled on the risks, benefits, indications and alternatives of the procedure. Informed consent was obtained. She was taken to the operating room with IV running and placed on the operating table in the dorsal supine position with a leftward tilt. Regional anesthesia was found to be adequate. Sequential compression devices were placed on the lower extremities. A Garcia catheter was placed under sterile conditions. She was prepared and draped in normal sterile fashion. A time out was performed per protocol. Regional anesthesia was again found to be adequate. A Pfannenstiel skin incision was made with the 10 blade. The 10 blade was used to dissect down to the level of the rectus sheath fascia. The rectus sheath pressure was incised midline and this was extended bilaterally with Rice scissors , and manual stretch. The rectus muscle bellies were dissected off the rectus sheath fascia superiorly and inferiorly using both sharp and blunt dissection. The midline was identified. The peritoneum was identified and the cavity entered. The peritoneal opening was extended with manual stretch. The Mobius retractor was placed. The vesicouterine peritoneum was dissected with Metzenbaum scissors to create the bladder flap. A low transverse uterine incision was made with the 10 blade. This was extended with manual stretch. The amniotic sac was punctured, and clear fluid was noted. Typical breech maneuvers were performed. The baby delivered through the hysterotomy without difficulty. The cord was doubly clamped and cut, and the baby was handed off to awaiting care. data shown above. The placenta was removed manually. The intrauterine cavity was cleared of all clot and radha ris. The hysterotomy was closed with 0 Vicryl in running locked fashion. This was reinforced with a second imbricating layer using 0 Vicryl in running fashion. Excellent hemostasis of the hysterotomy was noted. The right and left fallopian tubes were followed out to the fimbriated end. A ligation was performed on each fallopian tube using the following technique (Cale): The ampullary portion of each was grasped with a Garden and elevated. A peritoneal window was created with Bovie along the mesosalpinx. Plain gut suture was used to tie two locations of the fallopian tube at the ends of the created window. The approximate 2-3cm intervening segment of fallopian tube was excised with Metzenbaum scissors. Bovie cautery was used to obliterate the lumen of the fallopian tube on each cut end, and to ensure hemostasis. Excellent hemostasis was noted. The pelvis was irrigated and the fluid suctioned. The Mobius retractor was removed. The peritoneum was closed with 3-0 Vicryl running fashion. The rectus muscle bellies were reapproximated with interrupted stitches using 3-0 Vicryl. The rectus muscles bellies were hemostatic. The rectus sheath fascia was closed with 0 Vicryl running fashion. The subcutaneous layer was irrigated and the fluid suctioned. Small bleeding vessels were cauterized with Bovie. Excellent hemostasis was noted. The subcutaneous layer was reapproximated with 3-0 Vicryl running fashion. Skin was closed with 3-0 Monocryl in subcuticular fashion. An Optifoam bandage was placed over the closed incision. Sponge, needle and instrument counts were correct per protocol throughout the procedure. The p atient tolerated the entire procedure very well. She was transferred to the PACU in stable condition. DO SALVADOR Arriaga JONATHAN R. DO Jun 28, 2020 12:31
[2020-06-28] MEDS ORDERED: IBUP80TA PO (12:33)
[2020-06-28] MEDS ORDERED: DOK1CAP7 PO (12:33)
[2020-06-28] MEDS ORDERED: PERCOCET PO (12:33)
[2020-06-28] MEDS ORDERED: HYDROMORPHONE HCL 0.5 MG/ 0.5 ML SYRINGE (J1170 PER 1) IV PRN (12:40)
[2020-06-28] MEDS ORDERED: oxyCODONE 5MG TAB PO PRN (12:40)
[2020-06-28] MEDS ORDERED: fentaNYL 100 MCG/2 ML INJECTION (J3010) IV PRN (12:40)
[2020-06-28] MEDS ORDERED: OXYTOCIN 30 UNITS IN 0.9% NaCl 500ML IV BAG (J2590) As Ordered ONE (12:44)
[2020-06-28 14:00] VITALS: BP 116/67
[2020-06-28 14:30] VITALS: BP 114/66
[2020-06-28 15:30] VITALS: BP 123/68
[2020-06-28 17:56] VITALS: BP 142/85
[2020-06-28] MEDS: KETOROLAC 30 MG/ML 1ML VIAL IV SCH (18:12)
[2020-06-28] MEDS ORDERED: SLF 3 ML SYR IV PRN (18:15)
[2020-06-28] MEDS: DOCUSATE SODIUM 100MG CAPSULE PO SCH (20:08)
[2020-06-28] MEDS: PERCOCET 5MG/325MG TAB PO PRN (20:09)
[2020-06-28 22:00] VITALS: BP 132/71
[2020-06-28] MEDS: SLF 3 ML SYR IV SCH (22:06)
[2020-06-29] MEDS: KETOROLAC 30 MG/ML 1ML VIAL IV SCH ×2 (00:02→05:38)
[2020-06-29] MEDS: PERCOCET 5MG/325MG TAB PO PRN ×4 (01:09→20:10)
[2020-06-29 02:00] VITALS: BP 108/66
[2020-06-29] MEDS: SLF 3 ML SYR IV SCH (05:38)
[2020-06-29 06:00] VITALS: BP 96/55
[2020-06-29] MEDS: PRENATAL VITAMINS CHEWABLE TABLET PO SCH (08:01)
[2020-06-29] MEDS: SIMETHICONE 80MG CHEW TAB PO PRN ×3 (08:01→21:25)
[2020-06-29] MEDS: DOCUSATE SODIUM 100MG CAPSULE PO SCH ×2 (08:01→20:10)
[2020-06-29 08:50] LABS: HEMATOCRIT 34.1 % (36.0-47.0); MEAN CORPUSCULAR HEMOGLOBIN 29.3 pg (27.0-33.0); MEAN CORPUSCULAR HGB CONC 32.3 g/dl (32.0-36.5); MEAN CORPUSCULAR VOLUME 90.7 fl (80.0-96.0); PLATELET COUNT, AUTOMATED 247 10^3/uL (150-450); RED BLOOD COUNT 3.76 10^6/uL (4.00-5.40); WHITE BLOOD COUNT 13.9 10^3/uL (4.0-10.0)
--- NOTE | 2020-06-29 09:38 | IPNPDOC ---
Progress Note Date of Service: Jun 29, 2020 Day#: 1 Progress Note SUBJECT: Nathalie is a who was scheduled for a primary section due to breech presentation with a velamentous cord insertion and GHTN. She also had a salpingectomy due to satisfied parity. She reports her pain has been managed. She has been ambulating, voiding, and eating a regular diet. She is without difficulty. OBJECTIVE: VITAL SIGNS: Within normal limits, afebrile. Alert and oriented times three. Breath sounds clear to auscultation. No use of accessory muscles Abdomen: Fundus firm at U. Dressing intact. Minimal lochia. ASSESSMENT: Day 1 postoperative PLAN: 1. Continue supportive nursing care. 2. Patient to shower today. 3. Anticipate discharge to home tomorrow. VS, I&O, 24H, Fishbone Vital Signs/I&O Vital Signs Date Time Temp Pulse Resp B/P (MAP) Pulse Ox O2 Delivery O2 Flow Rate FiO2 06/29/20 09:24 18 06/29/20 06:00 98.3 86 96/55 (69) 98 Room Air I&O- Last 24 Hours up to 6 AM 06/29/20 06:00 Intake Total 2740 ml Output Total 1100 ml Balance 1640 ml Laboratory Data 24H LABS Laboratory Tests 2 06/29/20 07:43: Nucleated Red Blood Cells % (auto) 0.0 CBC/BMP Laboratory Tests 06/29/20 07:43 CARINA HAYS CNM Jun 29, 2020 09:38
[2020-06-29 10:10] VITALS: BP 131/76
[2020-06-29 14:00] VITALS: BP 129/67
[2020-06-29] MEDS: IBUPROFEN 800 MG TAB PO SCH ×2 (14:03→21:25)
[2020-06-29 18:00] VITALS: BP 112/69
[2020-06-29 21:52] VITALS: BP 120/66
[2020-06-30] MEDS: PERCOCET 5MG/325MG TAB PO PRN ×2 (02:04→11:09)
[2020-06-30 02:07] VITALS: BP 114/69
[2020-06-30] MEDS: IBUPROFEN 800 MG TAB PO SCH (05:55)
[2020-06-30 06:25] VITALS: BP 125/61
--- NOTE | 2020-06-30 08:00 | OBDS ---
[facility] Obstetrical Discharge Sum. Obstetrical Discharge Summary Date: Jun 30, 2020 Time: 07:58 VDRL: Non-Reactive Rubella: Immune Anesthesia: Regional Anesthesia A/P, Post Course List any complications Admission diagnosis: Term breech presentation . Discharge diagnosis: Same Condition at Discharge: [Stable] Discharge Instructions: [nothing in vagina for 6 weeks] Activity: [As tolerated ] Diet: [regular] Medications: [see list] Follow-up: [2 weeks] Other: Gwyn Delarosa DO Jun 30, 2020 08:00
[2020-06-30] MEDS: DOCUSATE SODIUM 100MG CAPSULE PO SCH (08:26)
[2020-06-30] MEDS: PRENATAL VITAMINS CHEWABLE TABLET PO SCH (08:26)
== END 2020-06-30 11:55 | disposition home or self-care (01) | DRG 540 ==
LOC: M LDI 06:53 → M OBS 13:51
PROVIDERS: ADMIT Obstetrics & Gynecology; ATTEND Obstetrics & Gynecology
PROC: 0UB70ZZ Excision of Bilateral Fallopian Tubes, Open Approach (ICD-10-PCS; 2020-06-28)
PROC: 10D00Z1 Extraction of Products of Conception, Low, Open Approach (ICD-10-PCS; principal; 2020-06-28 09:30)
DX: O32.1XX0 Maternal care for breech presentation, not applicable or unspecified (principal); O69.89X0 Labor and delivery complicated by other cord complications, not applicable or unspecified; Z37.0 Single live birth; Z3A.37 37 weeks gestation of pregnancy; Z30.2 Encounter for sterilization; O13.4 Gestational [pregnancy-induced] hypertension without significant proteinuria, complicating childbirth

== ENCOUNTER → 2020-12-27 | Outpatient (CLI) | payer OTHER ==
[~2020-12-27] MED LIST changes: +DOK1CAP4 PO; +PERCOCET PO; +PREN1CHW PO
== END ==
LOC: M LABSMTC 10:28
PROVIDERS: ATTEND Pediatrics
DX: Z20.822 Contact with and (suspected) exposure to COVID-19 (principal)

== ENCOUNTER → 2021-06-12 | Outpatient (CLI) | payer OTHER ==
[~2021-06-12] MED LIST changes: +OMEP-173; -OMEP-218
== END ==
LOC: M CLY 08:15
PROVIDERS: ATTEND Nurse Practitioner Family
DX: M25.572 Pain in left ankle and joints of left foot (principal)

== ENCOUNTER → 2022-03-10 | Outpatient (CLI) | payer OTHER ==
[2022-03-10 17:12] LABS: BASO % 0.4 % (0.0-1.0); EOS # 0.5 10^3/uL (0.0-0.5); EOS % 4.9 % (0.0-3.0); HEMATOCRIT 45.6 % (36.0-47.0); HEMOGLOBIN 14.9 g/dl (12.0-15.5); LYMPH # 2.9 10^3/uL (1.5-5.0); LYMPH % 26.2 % (24.0-44.0); MEAN CORPUSCULAR HEMOGLOBIN 30.3 pg (27.0-33.0); MEAN CORPUSCULAR HGB CONC 32.7 g/dl (32.0-36.5); MEAN CORPUSCULAR VOLUME 92.7 fl (80.0-96.0); MONO # 0.6 10^3/uL (0.0-0.8); MONO % 5.2 % (2.0-8.0); NEUTROPHILS # 6.9 10^3/uL (1.5-8.5); PLATELET COUNT, AUTOMATED 347 10^3/uL (150-450); RED BLOOD COUNT 4.92 10^6/uL (4.00-5.40)
[2022-03-10 17:46] LABS: HEMOGLOBIN A1c 4.7 % (4.0-6.0)
[2022-03-10 19:21] LABS: CHLORIDE LEVEL 100 MMOL/L (98-107); POTASSIUM SERUM 4.5 MMOL/L (3.5-5.1); SODIUM LEVEL 137 MMOL/L (136-145)
[2022-03-10 19:22] LABS: ALBUMIN 3.9 G/DL (3.2-5.2); CARBON DIOXIDE LEVEL 27 MMOL/L (20-31)
[2022-03-10 19:27] LABS: BLOOD UREA NITROGEN 20 MG/DL (9-23); CALCIUM LEVEL 8.9 MG/DL (8.5-10.1); GLUCOSE, FASTING 59 MG/DL (60-100)
[2022-03-10 19:28] LABS: ALT/SGPT 14 U/L (7.0-40)
[2022-03-10 19:29] LABS: BILIRUBIN,TOTAL 0.5 MG/DL (0.3-1.2); CREATININE FOR GFR 0.73 MG/DL (0.55-1.30); GLOMERULAR FILTRATION RATE > 60.0 (>60); TOTAL PROTEIN 6.9 G/DL (5.7-8.2)
[2022-03-10 19:31] LABS: THYROID STIMULATING HORMONE 1.611 uIU/ML (0.55-4.78)
[2022-03-10 19:32] LABS: FREE T4 1.09 NG/DL (0.89-1.76); PROLACTIN 5.62 NG/ML
== END ==
LOC: M RAD 15:36
PROVIDERS: ATTEND Nurse Practitioner Family
DX: R10.2 Pelvic and perineal pain (principal); N88.9 Noninflammatory disorder of cervix uteri, unspecified

== ENCOUNTER → 2022-04-27 | Outpatient (REF) | payer OTHER | LOC: M PLALAB 11:13 | PROVIDERS: ATTEND Nurse Practitioner Family | DX: Z53.9 Procedure and treatment not carried out, unspecified reason (principal) ==

== ENCOUNTER 2022-05-01 15:48 | Emergency (ER) | payer OTHER ==
[~2022-05-01] VITALS: Ht 154.9 cm; Wt 85.0 kg
[2022-05-01] MEDS ORDERED: VENTAER INH (16:16)
[2022-05-01] MEDS ORDERED: APRITAB PO (16:16)
[2022-05-01 17:24] LABS: BASO % 0.2 % (0.0-1.0); EOS # 0.3 10^3/uL (0.0-0.5); EOS % 2.6 % (0.0-3.0); HEMATOCRIT 42.2 % (36.0-47.0); HEMOGLOBIN 14.1 g/dl (12.0-15.5); LYMPH # 2.4 10^3/uL (1.5-5.0); LYMPH % 23.8 % (24.0-44.0); MEAN CORPUSCULAR HEMOGLOBIN 30.6 pg (27.0-33.0); MEAN CORPUSCULAR HGB CONC 33.4 g/dl (32.0-36.5); MEAN CORPUSCULAR VOLUME 91.5 fl (80.0-96.0); MONO # 0.5 10^3/uL (0.0-0.8); MONO % 4.8 % (2.0-8.0); NEUTROPHILS % 68.3 % (36.0-66.0); PLATELET COUNT, AUTOMATED 312 10^3/uL (150-450); RED BLOOD COUNT 4.61 10^6/uL (4.00-5.40); WHITE BLOOD COUNT 10.3 10^3/uL (4.0-10.0)
[2022-05-01 17:45] LABS: BILIRUBIN,TOTAL 0.6 MG/DL (0.3-1.2)
[2022-05-01 17:46] LABS: BILIRUBIN,DIRECT 0.2 MG/DL (<0.4)
[2022-05-01] MEDS ORDERED: KETOROLAC 30 MG/ML 1ML VIAL IV ONE (19:05)
[2022-05-01] MEDS ORDERED: predniSONE 20 MG TAB PO ONE (19:05)
[2022-05-01] MEDS ORDERED: PRED20TA PO (19:05)
[2022-05-01 19:20] VITALS: BP 134/84
== END 2022-05-01 19:22 | disposition home or self-care (01) ==
LOC: M ED 15:48
DX: R10.2 Pelvic and perineal pain (principal); N92.6 Irregular menstruation, unspecified; J45.909 Unspecified asthma, uncomplicated; Z87.42 Personal history of other diseases of the female genital tract; Z88.6 Allergy status to analgesic agent; Z79.52 Long term (current) use of systemic steroids; Z79.899 Other long term (current) drug therapy
CPT/HCPCS: 36415; 76830; 76856; 80047; 80076; 81002; 83690; 84702; 85025; 93976; 96374; 99284; J7512

== ENCOUNTER → 2022-09-01 | Outpatient (CLI) | payer OTHER ==
[~2022-09-01] MED LIST changes: +APRITAB PO; +PRED20TA PO; +VENTAER INH
[2022-09-01 11:08] LABS: HEMOGLOBIN A1c 4.8 % (4.0-6.0)
[2022-09-01 11:13] LABS: ALBUMIN 3.4 G/DL (3.2-5.2); ALKALINE PHOSPHATASE 67 U/L (46-116); ALT/SGPT 25 U/L (7.0-40); AST/SGOT 31 U/L (<34); BILIRUBIN,TOTAL 0.7 MG/DL (0.3-1.2); BLOOD UREA NITROGEN 8 MG/DL (9-23); CARBON DIOXIDE LEVEL 25 MMOL/L (20-31); CHLORIDE LEVEL 104 MMOL/L (98-107); CREATININE FOR GFR 0.74 MG/DL (0.55-1.30); GLOMERULAR FILTRATION RATE > 60.0 (>60); GLUCOSE, FASTING 75 MG/DL (60-100); POTASSIUM SERUM 4.5 MMOL/L (3.5-5.1); SODIUM LEVEL 139 MMOL/L (136-145)
== END ==
LOC: M PLALAB 08:57
PROVIDERS: ATTEND Nurse Practitioner Family
DX: L68.0 Hirsutism (principal); N93.0 Postcoital and contact bleeding; Z12.4 Encounter for screening for malignant neoplasm of cervix; E28.2 Polycystic ovarian syndrome

== ENCOUNTER → 2022-09-10 | Outpatient (REF) | payer OTHER | LOC: M SFHCWAGY 10:21 | PROVIDERS: ATTEND Nurse Practitioner Family | DX: Z12.4 Encounter for screening for malignant neoplasm of cervix (principal) ==

== ENCOUNTER → 2022-09-29 | Outpatient (CLI) | payer OTHER | LOC: M RAD 09:21 | PROVIDERS: ATTEND Nurse Practitioner Family | DX: R10.2 Pelvic and perineal pain (principal) ==

== ENCOUNTER → 2022-12-01 | Outpatient (CLI) | payer OTHER ==
[2022-12-01 14:18] LABS: ALBUMIN 3.4 G/DL (3.2-5.2); ALKALINE PHOSPHATASE 94 U/L (46-116); ALT/SGPT 17 U/L (7.0-40); AST/SGOT 11 U/L (<34); BILIRUBIN,TOTAL 0.6 MG/DL (0.3-1.2); BLOOD UREA NITROGEN 9 MG/DL (9-23); CALCIUM LEVEL 8.9 MG/DL (8.5-10.1); CARBON DIOXIDE LEVEL 30 MMOL/L (20-31); CHLORIDE LEVEL 102 MMOL/L (98-107); CREATININE FOR GFR 0.81 MG/DL (0.55-1.30); GLOMERULAR FILTRATION RATE > 60.0 (>60); GLUCOSE, FASTING 55 MG/DL (60-100); POTASSIUM SERUM 4.4 MMOL/L (3.5-5.1); SODIUM LEVEL 139 MMOL/L (136-145); TOTAL PROTEIN 6.7 G/DL (5.7-8.2)
== END ==
LOC: M PLALAB 08:49
PROVIDERS: ATTEND Nurse Practitioner Family
DX: L68.0 Hirsutism (principal)

== ENCOUNTER 2022-12-21 10:56 | Day surgery (SDC) | payer OTHER ==
[~2022-12-21] VITALS: Ht 157.5 cm; Wt 83.9 kg
[~2022-12-21 10:56] MED LIST changes: +BUPR1TAB52 PO; +LIDOCAINE 2% 100MG/5ML SDV (FOR ANES.) As Ordered ONE; +LR 1,000 ML IV SCH; +MIDAZOLAM INJ 2MG/2ML VIAL As Ordered ONE; +ROCURONIUM BROMIDE 50MG/5ML VIAL As Ordered ONE; +SPIR50TA4 PO; +ceFAZolin SOD 2 GM in IV 1 EA IV ONE; +fentaNYL 250 MCG/5 ML INJECTION As Ordered ONE; +propofoL 200 MG/20 ML VIAL As Ordered ONE
[2022-12-21 11:35] LABS: HEMATOCRIT 42.3 % (36.0-47.0); HEMOGLOBIN 13.8 g/dl (12.0-15.5); MEAN CORPUSCULAR HEMOGLOBIN 29.3 pg (27.0-33.0); MEAN CORPUSCULAR HGB CONC 32.6 g/dl (32.0-36.5); MEAN CORPUSCULAR VOLUME 89.8 fl (80.0-96.0); PLATELET COUNT, AUTOMATED 323 10^3/uL (150-450); RED BLOOD COUNT 4.71 10^6/uL (4.00-5.40); WHITE BLOOD COUNT 10.1 10^3/uL (4.0-10.0)
[2022-12-21] MEDS ORDERED: IBUP-1022 PO (12:08)
[2022-12-21] MEDS ORDERED: OXYC1TAB23 PO (12:08)
[2022-12-21] MEDS ORDERED: propofoL 200 MG/20 ML VIAL As Ordered ONE (12:35)
[2022-12-21] MEDS ORDERED: METOCLOPRAMIDE INJ 10MG/2ML VIAL As Ordered ONE (12:50)
[2022-12-21] MEDS ORDERED: ONDANSETRON 4MG 2ML VIAL As Ordered ONE (12:50)
[2022-12-21] MEDS ORDERED: KETOROLAC 60MG 2ML VIAL As Ordered ONE (12:50)
[2022-12-21] MEDS ORDERED: ACETAMINOPHEN 1000MG 100ML IV BAG As Ordered ONE (12:50)
[2022-12-21] MEDS ORDERED: SUGAMMADEX SODIUM 500 MG/5 ML VIAL (BRIDION) As Ordered ONE (12:51)
[2022-12-21] MEDS ORDERED: HYDROmorphone HCL 2MG/ML 1ML VIAL As Ordered ONE (13:00)
[2022-12-21] MEDS ORDERED: DESFLURANE 240 ML INHALANT As Ordered ONE (13:48)
[2022-12-21] MEDS ORDERED: HYDROMORPHONE HCL 0.5 MG/ 0.5 ML SYRINGE IV PRN (14:15)
[2022-12-21] MEDS ORDERED: LR 1,000 ML IV SCH ×2 (14:15→15:15)
[2022-12-21] MEDS ORDERED: ONDANSETRON 4MG 2ML VIAL IV PRN (14:15)
[2022-12-21] MEDS ORDERED: oxyCODONE 5MG TAB PO PRN (14:15)
[2022-12-21] MEDS: fentaNYL 100 MCG/2 ML INJECTION IV PRN ×2 (14:33→14:39)
[2022-12-21] MEDS ORDERED: PERCOCET 5MG/325MG TAB PO PRN (15:15)
[2022-12-21] MEDS ORDERED: diphenhydrAMINE 50MG/ML VIAL IV ONE (16:05)
[2022-12-21] MEDS ORDERED: ONDANSETRON 4MG 2ML VIAL IV ONE (16:15)
[2022-12-21] MEDS ORDERED: oxyCODONE 5MG TAB PO ONE (16:15)
[2022-12-21 16:30] VITALS: BP 128/67; TEMP 97.7; O2SAT 100
== END 2022-12-21 16:36 | disposition home or self-care (01) ==
LOC: M SDC 10:56
PROVIDERS: ATTEND Specialist
DX: N39.3 Stress incontinence (female) (male) (principal); N92.0 Excessive and frequent menstruation with regular cycle; N84.0 Polyp of corpus uteri; D25.9 Leiomyoma of uterus, unspecified; M79.7 Fibromyalgia; G43.909 Migraine, unspecified, not intractable, without status migrainosus; L40.50 Arthropathic psoriasis, unspecified; J45.909 Unspecified asthma, uncomplicated; Z79.51 Long term (current) use of inhaled steroids; Z79.899 Other long term (current) drug therapy; Z87.891 Personal history of nicotine dependence; Z88.8 Allergy status to other drugs, medicaments and biological substances
CPT/HCPCS: 36415; 57288; 58571; 81025; 85027; 86850; 86900; 86901; 88307; C1771; J0131; J0665; J0690; J1100; J1170; J1885; J2250; J2405; J2765; J3010; S2900

== ENCOUNTER → 2022-12-25 | Outpatient (REF) | payer OTHER ==
[~2022-12-25] MED LIST changes: +IBUP-1022 PO; -LIDOCAINE 2% 100MG/5ML SDV (FOR ANES.) As Ordered ONE; -LR 1,000 ML IV SCH; -MIDAZOLAM INJ 2MG/2ML VIAL As Ordered ONE; +OXYC1TAB23 PO; -ROCURONIUM BROMIDE 50MG/5ML VIAL As Ordered ONE; -ceFAZolin SOD 2 GM in IV 1 EA IV ONE; -fentaNYL 250 MCG/5 ML INJECTION As Ordered ONE; -propofoL 200 MG/20 ML VIAL As Ordered ONE
== END ==
LOC: M SFHCWAGY 13:25
PROVIDERS: ATTEND Specialist
DX: N39.0 Urinary tract infection, site not specified (principal)

== ENCOUNTER → 2023-11-10 | Outpatient (CLI) | payer OTHER ==
[2023-11-10 15:49] LABS: ESTRADIOL 81.7 PG/ML; FOLLICLE STIMULATING HORMONE 3.2 mIU/ML; LUTEINIZING HORMONE 7.8 mIU/ML
== END ==
LOC: M PLALAB 13:56
PROVIDERS: ATTEND Specialist
DX: N92.6 Irregular menstruation, unspecified (principal)

== ENCOUNTER → 2024-06-15 | Outpatient (CLI) | payer OTHER | LOC: M CLY 14:00 | PROVIDERS: ATTEND Physician Assistant Medical | DX: M25.562 Pain in left knee (principal) ==

== ENCOUNTER → 2024-06-20 | Outpatient (REF) | payer OTHER | LOC: M SFHCCLAY 09:15 | PROVIDERS: ATTEND Nurse Practitioner Family | DX: M25.562 Pain in left knee (principal) ==

== ENCOUNTER → 2024-07-12 | Outpatient (REF) | payer OTHER ==
[2024-07-12 19:34] LABS: CPK CREATINE PHOSPHOKINASE 64 U/L (34-145); IRON (FE) 149 UG/DL (50-170); RHEUMATOID FACTOR QUANT < 3.5 IU/ML (<14)
[2024-07-12 19:35] LABS: FREE T4 1.17 NG/DL (0.89-1.76)
[2024-07-12 19:36] LABS: THYROID STIMULATING HORMONE 1.184 uIU/ML (0.55-4.78); TOTAL 25(OH) VITAMIN D 32.4 NG/ML (20.0-100.0); VITAMIN B12 LEVEL 904 PG/ML (211-911)
[2024-07-14 19:17] LABS: SSA SJOGRENS A <1.0 NEG AI (<1.0 NEG); SSB SJOGRENS B <1.0 NEG AI (<1.0 NEG)
== END ==
LOC: M SFHCCLAY 11:13
PROVIDERS: ATTEND Nurse Practitioner Family
DX: M25.562 Pain in left knee (principal); M79.605 Pain in left leg; R60.0 Localized edema; F32.89 Other specified depressive episodes; M17.11 Unilateral primary osteoarthritis, right knee; F34.1 Dysthymic disorder; M35.9 Systemic involvement of connective tissue, unspecified; M79.7 Fibromyalgia; R63.5 Abnormal weight gain